=== PATIENT | female | born 1980 | race African-American/Black ===

== ENCOUNTER 2020-11-13 16:27 | Outpatient (REF) | payer MEDICAID, OTHER, SELFPAY ==
--- NOTE | ~2020-11-13 | XR_ITS ---
EXAMINATION: XR LUMBOSACRAL SPINE CLINICAL INFORMATION: Low back pain COMPARISON: 04/14/2017 TECHNIQUE: Three views of the lumbosacral spine. FINDINGS: The vertebral bodies and posterior elements are normal. The disc spaces are preserved and the vertebral alignment is normal. The paraspinal soft tissues are normal. XR/XR lumbar spine 2-3V IMPRESSION: Unremarkable examination.
== END 2020-11-13 16:28 | disposition home or self-care (01) ==
LOC: HO.XRAY 16:27
PROVIDERS: PCP Family Medicine; Visit Provider Family Medicine
DX: M54.5 Low back pain (principal)
CPT/HCPCS: 72100

== ENCOUNTER 2020-12-06 08:28 | Outpatient (REF) | payer MEDICAID, OTHER, SELFPAY ==
--- NOTE | ~2020-12-06 | US_ITS ---
EXAMINATION: US ABDOMEN COMPLETE CLINICAL INFORMATION: Fatty liver. COMPARISON: Ultrasound abdomen complete 04/02/2018 and 08/28/2014. TECHNIQUE: Real-time imaging of the abdominal viscera. FINDINGS: PANCREAS: Normal. ABDOMINAL AORTA: The proximal, mid, and distal segments are normal in caliber. INFERIOR VENA CAVA: Visualized portions are normal. LIVER: The liver is normal in size. The liver contour is normal. There is diffuse increased liver parenchymal echogenicity, consistent with hepatic steatosis. No focal hepatic lesion. There is no intrahepatic biliary duct dilatation seen. GALLBLADDER: The gallbladder is physiologically distended. Multiple mobile gallstones are present. No evidence of gallbladder wall thickening or pericholecystic fluid. COMMON BILE DUCT: Normal in caliber measuring 0.4 cm in diameter. RIGHT KIDNEY: Normal. No hydronephrosis. No renal calculi or focal parenchymal lesions. The kidney measures 10.2 cm in maximum dimension. LEFT KIDNEY: Normal. No hydronephrosis. No renal calculi or focal parenchymal lesions. The kidney measures 10.8 cm in maximum dimension. SPLEEN: Normal. The spleen measures 9.4 cm in maximum dimension. FREE FLUID: None. US/US abdomen complete IMPRESSION: Cholelithiasis without sonographic evidence for acute cholecystitis. Redemonstration of increased echogenicity of the hepatic parenchyma, compatible with hepatic steatosis. No focal lesion.
== END 2020-12-06 08:29 | disposition home or self-care (01) ==
LOC: HO.HMGCX 08:28
PROVIDERS: PCP Family Medicine; Visit Provider Family Medicine
DX: K76.0 Fatty (change of) liver, not elsewhere classified (principal)
CPT/HCPCS: 76700

== ENCOUNTER 2021-03-27 09:37 | Outpatient (REF) | payer MEDICAID, OTHER, SELFPAY ==
--- NOTE | 2021-03-27 09:30 | EMG_ITS ---
This is a 40-year-old woman with a 6-month history of bilateral lateral thumb pain and numbness as well as numbness in the lateral aspect of the legs and some low back pain. She was recently diagnosed with diabetes with an A1c of 11, which she has brought down to 7 with diet and exercise. She is on no medications. Her neurological examination is normal. IMPRESSION: Rule out neuropathy, rule out lumbar radiculopathy. Nerve conduction EMG study: Normal motor and sensory nerve conduction study of the lower extremities with no evidence of diffuse neuropathy or nerve entrapment. EMG of the right L2-S1 innervated muscles is suggestive of mild chronic neuropathic changes in the right L5 radiculopathy. MD AZIZA Barbuor/NAJMA / [id number]
== END 2021-03-27 09:38 | disposition home or self-care (01) ==
LOC: HO.NEURO 09:37
PROVIDERS: Visit Provider Family Medicine
DX: M54.50 Low back pain, unspecified (principal)
CPT/HCPCS: 95886; 95912

== ENCOUNTER 2023-02-16 13:32 | Outpatient (REF) | payer OTHER, SELFPAY ==
[2023-02-16 15:57] LABS: MANUAL DIFF FLAG NO
[2023-02-16 16:02] LABS: Basophils Absolute Auto 0.1 X10*3/uL (0.0-0.2); Basophils Percent Auto 0.7 % (0-2); Eosinophils Absolute Auto 0.1 X10*3/uL (0.0-0.4); Imm Gran Abs Auto 0.02 X10*3/uL (0.00-0.03); Imm Gran Pct Auto 0.2 % (0.0-0.4); Lymphocytes Absolute Auto 2.4 X10*3/uL (1.2-4.9); Mean Corpuscular HGB Conc 33.3 g/dl (31.0-35.0); Mean Corpuscular Volume 90.1 fL (80.0-98.0); Mean Platelet Volume 9.9 fL (9.4-12.3); Monocytes Absolute Auto 0.6 X10*3/uL (0.1-1.2); Monocytes Percent Auto 7.2 % (2-11); Neutrophils Absolute Auto 4.9 x10*3/uL (2.0-8.3); Neutrophils Percent Auto 60.9 % (45-73); Platelet Count 366 X10*3/uL (160-400); Red Blood Count 4.66 X10*6/uL (4.20-5.50); Red Cell Distribution Width 13.1 % (11.0-16.0)
[2023-02-16 16:15] LABS: Estimated Average Glucose 217 mg/dL; Hemoglobin A1c % 9.2 % (<6.0)
[2023-02-16 16:18] LABS: Rheumatoid Factor < 13.0 IU/mL (<15.0)
[2023-02-16 16:50] LABS: Folate 14.7 ng/mL (> or = 4.0); Vitamin B12 302 pg/mL (200-900)
[2023-02-16 16:55] LABS: Creatinine Urine 129.31 mg/dL; Microalbum/Creatinine Ratio Ur 170.1 ug/mg cr (<30)
[2023-02-16 17:32] LABS: Erythrocyte Sedimentation Rate 16 MM/HR (0-20)
[2023-02-16 18:08] LABS: CT PCR NOT DETECTED (Not Detect.); NG PCR NOT DETECTED (Not Detect.)
[2023-02-16 19:59] LABS: Alanine Aminotransferase 26 U/L (0-31); Albumin Level 4.4 g/dL (3.5-5.0); Alkaline Phosphatase 55 U/L (39-117); Anion Gap 16 (12-20); Aspartate Amino Transferase 24 U/L (5-31); Bilirubin Direct 0.2 mg/dL (0.0-0.5); Bilirubin Total 0.5 mg/dL (0.0-1.0); Blood Urea Nitrogen 5 mg/dL (9-16); C Reactive Protein 0.31 mg/dL (< or = 0.50); Calcium 9.6 mg/dL (8.4-10.2); Carbon Dioxide 22 mmol/L (22-29); Chloride 104 mmol/L (96-108); Cholesterol 170 mg/dL (<200); Estimated Glomerular Filt Rate > 60; Glucose Random 118 mg/dL (60-115); HDL Cholesterol 55 mg/dL (>40); Iron 90 mcg/dL (30-160); LDL Cholesterol Calculated 85 mg/dL (<100); Percent Iron Saturation 24 % (15-50); Potassium 4.2 mmol/L (3.3-5.1); Sodium 138 mmol/L (135-145); Total Iron Binding Capacity 374 mcg/dL (228-428); Total Protein 8.3 g/dL (6.5-8.0); Triglycerides 152 mg/dL (<150); Unsaturated Iron Binding 284 ug/dL
[2023-02-16 20:14] LABS: Ferritin 19 ng/mL (10-250); Free T4 (Free Thyroxine) 0.93 ng/dL (0.71-1.85); Thyroid Stimulating Hormone 0.93 uIU/mL (0.32-4.0)
[2023-02-17 03:54] LABS: Syphilis Screen Nonreactive (Nonreactive)
[2023-02-17 04:10] LABS: ~Hepatitis C Antibody Nonreactive (Nonreactive)
[2023-02-17 04:23] LABS: HBsAGNum1 0.29 S/CO (0.00-0.99); HIV AB/AG Nonreactive (Nonreactive); HIV Num 1 0.06 S/CO (0.00-0.99); Hepatitis B Surface Antigen Negative (Negative); ~Hepatitis B Surface Antibody REACTIVE (Nonreactive)
[2023-02-18 01:59] LABS: Lyme Abs Screen <0.90 index
[2023-02-18 10:34] LABS: Alpha Fetoprotein 1.7 ng/mL
[2023-02-22 16:34] LABS: Anti Nuclear Antibody Screen NEGATIVE (NEGATIVE)
== END 2023-02-16 13:33 | disposition home or self-care (01) ==
LOC: HO.HHCL 13:32
PROVIDERS: Visit Provider Family Medicine
DX: E11.29 Type 2 diabetes mellitus with other diabetic kidney complication (principal); R80.9 Proteinuria, unspecified; Z79.4 Long term (current) use of insulin; Z20.2 Contact with and (suspected) exposure to infections with a predominantly sexual mode of transmission
CPT/HCPCS: 0353U; 80048; 80061; 80076; 82043; 82105; 82306; 82550; 82570; 82607; 82728; 82746; 83036; 83540; 84439; 84443; 85025; 85652; 86038; 86140; 86431; 86617; 86618; 86706; 86780; 86803; 87340; 87389

== ENCOUNTER 2024-01-13 16:11 | Outpatient (REF) | payer MEDICAID, OTHER, SELFPAY ==
--- NOTE | ~2024-01-13 | XR_ITS ---
EXAMINATION: XR CHEST CLINICAL INFORMATION: hx PE and DVT, left upper chest pain with radiation to shoulder COMPARISON: None TECHNIQUE: 2 views of the chest FINDINGS: Lines and tubes: None. Clear lungs. No pleural effusion. No pneumothorax. Normal cardiomediastinal silhouette. XR/XR chest 2V IMPRESSION: * Clear lungs. Electronically signed by: Elisha Burr MD 02/16/2024 02:12 PM EDT
--- NOTE | ~2024-01-13 | US_ITS ---
EXAMINATION: US VENOUS WITH DOPPLER UPPER EXTREMITY, LEFT CLINICAL INFORMATION: Left arm pain, rule out DVT COMPARISON: None available. TECHNIQUE: Ultrasound of the upper extremity is performed using compression sonography and color and pulse Doppler flow with assessment of augmentation of flow. There is also imaging and Doppler assessment of the jugular and subclavian veins. Spectral analysis with color-flow imaging is performed. FINDINGS: Respiratory variation, normal compression, and augmented flow are noted throughout the upper extremity including the axillary, brachial, cubital, and radial and ulnar veins. There is normal flow in the internal jugular and subclavian veins. There is no visible deep or superficial thrombophlebitis. If the patient's symptoms progress, a followup ultrasound in 5 -7 days might be of value to exclude proximal propagation from a nonvisualized distal arm vein. US/US venous duplex UE LT IMPRESSION: No DVT demonstrated in the left upper extremity
--- NOTE | ~2024-01-13 | XR_ITS ---
EXAMINATION: XR SHOULDER, LEFT CLINICAL INFORMATION: hx PE and DVT, left upper chest pain with radiation to shoulder COMPARISON: None TECHNIQUE: Four views of the shoulder. FINDINGS: No acute fracture or dislocation. Joint spaces are maintained without significant degenerative change. Soft tissues are unremarkable. XR/XR shoulder LT min 2V IMPRESSION: * No acute osseous abnormality. Electronically signed by: Elisha Burr MD 02/17/2024 12:36 PM EDT
== END 2024-01-13 16:12 | disposition home or self-care (01) ==
LOC: HO.US 16:11
PROVIDERS: Absent Provider Family Medicine; PCP Family Medicine; Visit Provider Family Medicine
DX: M25.512 Pain in left shoulder (principal); M79.602 Pain in left arm; Z86.718 Personal history of other venous thrombosis and embolism
CPT/HCPCS: 71046; 73030; 93971

== ENCOUNTER 2024-02-02 12:54 | Outpatient (REF) | payer MEDICAID, OTHER, SELFPAY ==
[2024-02-02 16:25] LABS: Hematocrit 40.1 % (37.0-47.0); Hemoglobin 13.4 g/dl (12.0-16.0); Mean Corpuscular HGB Conc 33.4 g/dl (31.0-35.0); Mean Corpuscular Hemoglobin 30.3 pg (27.0-33.0); Mean Corpuscular Volume 90.7 fL (80.0-98.0); Mean Platelet Volume 9.6 fL (9.4-12.3); Platelet Count 363 X10*3/uL (160-400); Red Blood Count 4.42 X10*6/uL (4.20-5.50); White Blood Count 7.9 X10*3/uL (4.8-10.8)
[2024-02-02 16:30] LABS: Estimated Average Glucose 186 mg/dL; Hemoglobin A1c % 8.1 % (<6.0)
[2024-02-02 16:48] LABS: Creatinine Urine 192.62 mg/dL; Microalbum/Creatinine Ratio Ur 125.6 ug/mg cr (<30)
[2024-02-02 18:20] LABS: CT PCR NOT DETECTED (Not Detect.); NG PCR NOT DETECTED (Not Detect.)
[2024-02-02 21:17] LABS: Vitamin B12 211 pg/mL (200-900)
[2024-02-02 21:41] LABS: Alanine Aminotransferase 16 U/L (0-31); Albumin Level 4.1 g/dL (3.5-5.0); Alkaline Phosphatase 47 U/L (39-117); Anion Gap 11 (12-20); Aspartate Amino Transferase 19 U/L (5-31); Bilirubin Direct 0.2 mg/dL (0.0-0.5); Bilirubin Total 0.7 mg/dL (0.0-1.0); Blood Urea Nitrogen 9 mg/dL (9-16); Calcium 9.1 mg/dL (8.4-10.2); Carbon Dioxide 26 mmol/L (22-29); Chloride 104 mmol/L (96-108); Cholesterol 196 mg/dL (<200); Estimated Glomerular Filt Rate > 60; Glucose Random 115 mg/dL (60-115); HDL Cholesterol 60 mg/dL (>40); Iron 145 mcg/dL (30-160); LDL Cholesterol Calculated 111 mg/dL (<100); Percent Iron Saturation 43 % (15-50); Potassium 4.1 mmol/L (3.3-5.1); Sodium 137 mmol/L (135-145); Total Iron Binding Capacity 338 mcg/dL (228-428); Total Protein 7.6 g/dL (6.5-8.0); Triglycerides 128 mg/dL (<150); Unsaturated Iron Binding 193 ug/dL
[2024-02-02 21:56] LABS: Ferritin 70 ng/mL (10-250); Free T4 (Free Thyroxine) 0.97 ng/dL (0.71-1.85); Thyroid Stimulating Hormone 0.97 uIU/mL (0.32-4.0)
[2024-02-03 04:55] LABS: HBc Num1 5.32 S/CO (0.00-0.79); HBsAGNum1 0.86 S/CO (0.00-0.99); HIV AB/AG Nonreactive (Nonreactive); Hepatitis B Surface Antigen Negative (Negative); ~HepC Num1 0.16 S/CO (0.00-0.79); ~Hepatitis B Surface Antibody REACTIVE (Nonreactive); ~Hepatitis C Antibody Nonreactive (Nonreactive)
[2024-02-03 04:57] LABS: Hepatitis A Antibody IgG REACTIVE (Nonreactive); ~Hepatitis A Antibody IgG 10.69 S/CO (0.00-0.99)
[2024-02-03 06:14] LABS: HBc Num2 5.02 S/CO; HBc Num3 5.56 S/CO; Hepatitis B Core Antibody Reactive (Nonreactive)
[2024-02-03 22:09] LABS: RPR Rapid Plasma Reagin NON-REACTIVE (NON-REACTIVE)
[2024-02-04 12:58] LABS: Alpha Fetoprotein 1.4 ng/mL
== END 2024-02-02 12:55 | disposition home or self-care (01) ==
LOC: HO.HHCL 12:54
PROVIDERS: Visit Provider Family Medicine
DX: K76.0 Fatty (change of) liver, not elsewhere classified (principal); E11.29 Type 2 diabetes mellitus with other diabetic kidney complication; R80.9 Proteinuria, unspecified; Z79.4 Long term (current) use of insulin; E11.9 Type 2 diabetes mellitus without complications; D64.9 Anemia, unspecified
CPT/HCPCS: 36415; 80048; 80061; 80076; 82043; 82105; 82306; 82570; 82607; 82728; 82746; 83036; 83540; 84439; 84443; 85027; 86592; 86704; 86706; 86708; 86803; 87340; 87389; 87491; 87591

== ENCOUNTER 2024-02-04 18:22 | Outpatient (REF) | payer MEDICAID, OTHER, SELFPAY ==
[2024-02-05 12:15] LABS: CT PCR NOT DETECTED (Not Detect.); NG PCR NOT DETECTED (Not Detect.)
[2024-02-05 13:14] LABS: Bacterial Vaginosis PCR NEGATIVE (Negative); Candida Group PCR NOT DETECTED (Not Detect); Candida glab krusei PCR NOT DETECTED (Not Detect); Trichomonas vaginalis PCR NOT DETECTED (Not Detect)
== END 2024-02-04 18:23 | disposition home or self-care (01) ==
LOC: HO.HHCLNP 18:22
PROVIDERS: Visit Provider Family Medicine
DX: N93.9 Abnormal uterine and vaginal bleeding, unspecified (principal); R30.0 Dysuria
CPT/HCPCS: 0352U; 87086; 87491; 87591

== ENCOUNTER 2024-07-04 15:17 | Emergency (ER) | payer MEDICAID, OTHER, SELFPAY | END 2024-07-04 18:33 | disposition left against medical advice (07) | LOC: HO.ED 18:29 | PROVIDERS: Emergency Provider Emergency Medicine; PCP Family Medicine | DX: M79.605 Pain in left leg (principal); Z53.21 Procedure and treatment not carried out due to patient leaving prior to being seen by health care provider ==